=== PATIENT | female | born 1960 | race Caucasian/White ===

== ENCOUNTER 2019-03-02 13:43 | Emergency (ER) | payer BC ==
[2019-03-02] MEDS ORDERED: DIAZEPAM 5 MG TABLET ONE (14:53)
--- NOTE | 2019-03-02 15:04 | RAD REPORT ---
EXAM DESCRIPTION: RAD - Ankle Left 3 View -03/02/2019 2:34 pm CLINICAL HISTORY: Left ankle pain status post injury FINDINGS: Small avulsion fracture of navicular bone No dislocation Hallux valgus. Osteoporosis
--- NOTE | 2019-03-02 15:05 | RAD REPORT ---
EXAM DESCRIPTION: RAD - Foot Right 3 View - 03/02/2019 2:39 pm CLINICAL HISTORY: Right foot pain status post injury FINDINGS: Small avulsion fracture of navicular bone No dislocation Hallux valgus. Osteoporosis
--- NOTE | 2019-03-02 16:53 | EDPHYS ---
Physician Documentation [facility] Name: Sahun Mejias Age: 58 yrs Sex: Female : 1960 Arrival Date: 03/02/2019 Time: 13:51 Bed 10 Private MD: ED Physician Nik Harrison HPI: 03/02 14:11 This 58 yrs old Female presents to ER via Ambulatory with complaints of Ankle jmm Injury. 14:11 The patient presents with an injury, pain. Onset: The symptoms/episode began/occurred jmm acutely, just prior to arrival. Associated signs and symptoms: Pertinent positives: swelling, Pertinent negatives: numbness. Modifying factors: The symptoms are alleviated by nothing, the symptoms are aggravated by weight bearing, movement. This is a 58 year old female with no chronic medical conditions that presents to the ED with complains of pain to her left foot after tripping on steps. Patient's foot inverted. Patient states she felt a pop. Denies other injury. . Historical: - Allergies: 13:52 Codeine; hj - PMHx: 13:52 None; hj - PSHx: 13:52 Tonsillectomy; hj - Immunization history:: Adult Immunizations not up to date. - Social history:: Smoking status: Patient uses tobacco products, Patient/guardian denies using alcohol. - Ebola Screening: : Patient negative for fever greater than or equal to 101.5 degrees Fahrenheit, and additional compatible Ebola Virus Disease symptoms Patient denies exposure to infectious person Patient denies travel to an Ebola-affected area in the 21 days before illness onset. ROS: 14:11 Constitutional: Negative for fever, chills, and weight loss, Cardiovascular: Negative jmm for chest pain, palpitations, and edema, Respiratory: Negative for shortness of breath, cough, wheezing, and pleuritic chest pain. 14:11 MS/extremity: Positive for injury or acute deformity, pain. 14:11 All other systems are negative. Exam: 14:11 Head/Face: atraumatic. Eyes: EOMI, no conjunctival erythema appreciated ENT: Moist jmm Mucus Membranes Neck: Trachea midline, Supple Chest/axilla: Normal chest wall appearance and motion. Cardiovascular: Regular rate and rhythm. No edema appreciated Respiratory: Normal respirations, no respiratory distress appreciated Abdomen/GI: Non distended, soft Back: Normal ROM 14:11 Constitutional: The patient appears alert, awake, uncomfortable. 14:11 Musculoskeletal/extremity: pain elicited on palpation of the dorsum of the left foot, no obvious deformity appreciated, full dorsalis pulsed, compartments are soft, NVI. 14:11 Skin: Appearance: Color: normal in color. 14:11 Neuro: Orientation: is normal, Mentation: is normal, Memory: is normal. 14:11 Psych: Behavior/mood is pleasant, cooperative. Vital Signs: 13:52 BP 110 / 64; Pulse 83; Resp 18; Temp 98.6(TE); Pulse Ox 97% on R/A; Weight 63.5 kg; hj Height 5 ft. 6 in. (167.64 cm); Pain 7/10; 15:30 BP 112 / 94; Pulse 80; Resp 18; Pulse Ox 100% on R/A; hj 16:56 BP 115 / 69; Pulse 85; Resp 18; Pulse Ox 100% on R/A; hj 13:52 Body Mass Index 22.60 (63.50 kg, 167.64 cm) Procedures: 16:41 Splinting: Splint applied to left leg using Orthoglass splint, applied by techRobby chance Examined by me, post splint application: neurovascular intact, 2+ distal pulses palpable, brisk capillary refill noted, Patient tolerated. MDM: 14:11 Patient medically screened. [facility] 16:41 Data reviewed: vital signs, nurses notes. Counseling: I had a detailed discussion with robson the patient and/or guardian regarding: the historical points, exam findings, and any diagnostic results supporting the discharge/admit diagnosis, radiology results, the need for outpatient follow up, to return to the emergency department if symptoms worsen or persist or if there are any questions or concerns that arise at home. ED course: Patient splinted and advised to not bear weight. Patient given follow up with orthopedics. Patient otherwise given strict return precautions. . 03/02 14:15 Order name: Ankle Left 3 View XRAY; Complete Time: 16:[address] [facility] 03/02 14:15 Order name: Foot Right 3 View XRAY; Complete Time: 16:[address] [facility] 03/02 16:27 Order name: Posterior Orthoglass Ankle Splint; Complete Time: 16:[address] [facility] 03/02 16:27 Order name: Crutches; Complete Time: 16:[address] [facility] Administered Medications: 14:34 Drug: Valium 5 mg Route: PO; 14:45 Follow up: Response: No adverse reaction; Anxiety decreased hj Disposition: 16:41 Chart complete[address] [facility] 03/03 07:29 Co-signature as Attending Physician, Nik Harrison MD I agree with the assessment and kdr plan of care. Disposition: 03/02/19 16:43 Discharged to Home. Impression: Fracture of navicular [scaphoid] of foot. - Condition is Stable. - Discharge Instructions: Tarsal Navicular Fracture, Foot Pain. - Prescriptions for Valium 5 mg Oral Tablet - take 1 tablet by ORAL route every 8 hours As needed; 20 tablet. - Medication Reconciliation Form, Thank You Letter, Antibiotic Education, Prescription Opioid Use form. - Follow up: Kaden Kramer MD; When: 2 - 3 days; Reason: Recheck today's complaints, Continuance of care, Re-evaluation by your physician. Signatures: Dispatcher [employer] EDMS Nik Harrison MD MD kdr Mickail, Joel, PA PA [facility] Alexey Rapp RN RN Corrections: (The following items were deleted from the chart) 03/02 16:57 16:43 03/02/2019 16:43 Discharged to Home. Impression: Fracture of navicular [scaphoid] hj of foot. Condition is Stable. Forms are Medication Reconciliation Form, Thank You Letter, Antibiotic Education, Prescription Opioid Use. Follow up: Kaden Kramer; When: 2 - 3 days; Reason: Recheck today's complaints, Continuance of care, Re-evaluation by your physician. [facility]
--- NOTE | 2019-03-02 16:53 | ER ---
Nurse's Notes [facility] Name: Shaun Mejias Age: 58 yrs Sex: Female : 1960 Arrival Date: 03/02/2019 Time: 13:51 Bed 10 Private MD: Diagnosis: Fracture of navicular [scaphoid] of foot Presentation: 03/02 13:51 Presenting complaint: Patient states: i fell 2 steps on the stairs and twisted my L hj ankle about an hour ago; denies hitting head or LOC;. Transition of care: patient was not received from another setting of care. Onset of symptoms was March 02, 2019. Risk Assessment: Do you want to hurt yourself or someone else? Patient reports no desire to harm self or others. Initial Sepsis Screen: Does the patient meet any 2 criteria? No. Patient's initial sepsis screen is negative. Does the patient have a suspected source of infection? No. Patient's initial sepsis screen is negative. Care prior to arrival: None. 13:51 Method Of Arrival: Ambulatory 13:51 Acuity: CHRISTINE 4 hj Triage Assessment: 13:55 General: Appears in no apparent distress. uncomfortable, Behavior is calm, cooperative, hj appropriate for age. Pain: Complains of pain in lateral side of left foot and left lateral malleolus. Musculoskeletal: Reports pain in lateral side of left foot and left lateral malleolus. Historical: - Allergies: 13:52 Codeine; hj - PMHx: 13:52 None; hj - PSHx: 13:52 Tonsillectomy; hj - Immunization history:: Adult Immunizations not up to date. - Social history:: Smoking status: Patient uses tobacco products, Patient/guardian denies using alcohol. - Ebola Screening: : Patient negative for fever greater than or equal to 101.5 degrees Fahrenheit, and additional compatible Ebola Virus Disease symptoms Patient denies exposure to infectious person Patient denies travel to an Ebola-affected area in the 21 days before illness onset. Screenin:51 Abuse screen: Denies threats or abuse. Denies injuries from another. Nutritional hj screening: No deficits noted. Tuberculosis screening: No symptoms or risk factors identified. Fall Risk None identified. Assessment: 13:56 Reassessment: applied ice pack on L ankle and foot area. hj Vital Signs: 13:52 BP 110 / 64; Pulse 83; Resp 18; Temp 98.6(TE); Pulse Ox 97% on R/A; Weight 63.5 kg; hj Height 5 ft. 6 in. (167.64 cm); Pain 7/10; 15:30 BP 112 / 94; Pulse 80; Resp 18; Pulse Ox 100% on R/A; hj 16:56 BP 115 / 69; Pulse 85; Resp 18; Pulse Ox 100% on R/A; hj 13:52 Body Mass Index 22.60 (63.50 kg, 167.64 cm) hj ED Course: 13:51 Patient arrived in ED. hj 13:52 Triage completed. hj 13:52 Arm band placed on left wrist. hj 13:55 Alexey Rapp, RN is Primary Nurse. hj 13:56 Patient has correct armband on for positive identification. Bed in low position. Call hj light in reach. Side rails up X 1. Adult w/ patient. 13:59 [facility]obar Mercer [facility] 13:59 Nik Harrison MD is Attending Physician. m 14:30 X-ray completed. Portable x-ray completed in exam room. Patient tolerated procedure sw well. 15:34 Ankle Left 3 View XRAY In Process Unspecified. EDMS 15:34 Foot Right 3 View XRAY In Process Unspecified. EDMS 16:43 Kaden Kramer MD is Referral Physician. jmm 16:45 [place]jas wrap to left ankle Orthoglass splint: Posterior short lleg splint applied on left jp3 leg. 16:45 splint checked off by provider Escobar Mercer Pa-[facility] 16:55 No provider procedures requiring assistance completed. Patient did not have IV access hj during this emergency room visit. 17:05 Crutch training done. jp3 Administered Medications: 14:34 Drug: Valium 5 mg Route: PO; hj 14:45 Follow up: Response: No adverse reaction; Anxiety decreased hj Outcome: 16:43 Discharge ordered by . m 16:56 Discharged to home with crutches, with family. hj 16:56 Condition: stable 16:56 Discharge instructions given to patient, family, Instructed on discharge instructions, follow up and referral plans. medication usage, crutch walking, Demonstrated understanding of instructions, follow-up care, medications, crutch walking, Prescriptions given X 1. 16:57 Patient left the ED. hj Signatures: Dispatcher [employer] EDMS Escobar Mercer PA PA jmm Warren, Shannon sw Joaquin, Henry, ACE RN Yon Jj jp3
== END 2019-03-02 16:57 | disposition home or self-care (01) ==
LOC: ER 13:43
PROC: 2W3RX1Z Immobilization of Left Lower Leg using Splint (ICD-10-PCS; principal; 2019-03-02)
DX: S92.252A Displaced fracture of navicular [scaphoid] of left foot, initial encounter for closed fracture (principal); W01.0XXA Fall on same level from slipping, tripping and stumbling without subsequent striking against object, initial encounter; Y93.89 Activity, other specified; Y92.9 Unspecified place or not applicable; Z72.0 Tobacco use; Z88.5 Allergy status to narcotic agent
CPT/HCPCS: 99284